=== PATIENT | female | born 2000 | race Asian ===

== ENCOUNTER 2022-05-15 13:19 | Outpatient (CLI) | payer BC | END 2022-05-15 13:20 | disposition home or self-care (01) | LOC: LABBT 13:19 | PROVIDERS: ATTEND Internal Medicine Gastroenterology | DX: Z20.822 Contact with and (suspected) exposure to COVID-19 (principal) | CPT/HCPCS: 87811 ==

== ENCOUNTER 2022-05-20 13:07 | Outpatient (CLI) | payer BC | END 2022-05-20 13:08 | disposition home or self-care (01) | LOC: RAD 13:07 | PROVIDERS: ATTEND Internal Medicine Gastroenterology | DX: R13.10 Dysphagia, unspecified (principal); K21.9 Gastro-esophageal reflux disease without esophagitis | CPT/HCPCS: 74220 ==

== ENCOUNTER 2023-09-10 10:29 | Outpatient (CLI) | payer BC | END 2023-09-10 10:30 | disposition home or self-care (01) | LOC: BICRAD 10:29 | PROVIDERS: ATTEND Family Medicine | DX: M54.6 Pain in thoracic spine (principal); M43.8X5 Other specified deforming dorsopathies, thoracolumbar region | CPT/HCPCS: 72072 ==